=== PATIENT | male | born 1960 | race Caucasian/White ===

== ENCOUNTER 2017-09-29 09:27 | Outpatient (CLI) | payer SELFPAY ==
--- NOTE | 2017-09-29 19:51 | RAD ---
CHEST TWO VIEWS: Date: 09-29-17 History: Recent history of influenza. Patients with dyspnea. Comparison: None available. FINDINGS: The heart in size. There is no congestive change or significant pleural effusion. There is diffuse pr ominence of the interstitial markings, perhaps a little more so in the lower lobes than upper. Given no prior films to compare with, I do not know if this is new or old. It is more likely to be fibrosis than it is to be acute, though viral illnesses can produce interstitial infiltrates. There is certai nly no lobar consolidation to suggest a typical bacterial pneumonia. The trachea is midline. IMPRESSION: Mild interstitial prominence. See above. POS: HOME
== END 2017-09-29 09:28 | disposition home or self-care (01) ==
LOC: BURRAD 09:27
PROVIDERS: ATTEND Physician Assistant
DX: J11.1 Influenza due to unidentified influenza virus with other respiratory manifestations (principal)
CPT/HCPCS: 71046

== ENCOUNTER 2020-06-19 09:45 | Emergency (ER) | payer OTHER ==
[2020-06-19] MEDS ORDERED: Nitroglycerin 0.4 MG TAB 1 EACH ONE (10:00)
[2020-06-19] MEDS ORDERED: Aspirin Chewable 81 MG TAB ONE ×2 (10:00)
[2020-06-19 10:06] LABS: Hemoglobin 15.5 g/dL (14.0-18.0); Mean Corpuscular HGB CONC 34.2 g/dL (32.0-36.0); Mean Corpuscular Hemoglobin 34.6 pg (27.0-31.0); Mean Platelet Volume 7.7 fL (7.4-10.4); Platelet Count 233 thou/uL (130-400); RBC Distribution Width 11.2 % (11.5-14.5); Red Blood Cell (RBC) Count 4.48 mill/uL (4.70-6.10); White Blood Cell (WBC) Count 9.6 thou/uL (4.8-10.8)
[2020-06-19 10:18] LABS: ALT (SGPT) 13 U/L (8-55); AST (SGOT) 12 U/L (5-34); Albumin 4.2 g/dL (3.4-4.8); Alkaline Phosphatase 85 U/L (40-110); Anion Gap 15 mmol/L (10-20); BUN (Urea Nitrogen) 17 mg/dL (8.4-25.7); Bilirubin, Total 0.5 mg/dL (0.2-1.2); Calc. Creatinine Clearance 0 mL/min (70-130); Calcium 8.8 mg/dL (7.8-10.44); Carbon Dioxide 24 mmol/L (23-31); Chloride 106 mmol/L (98-107); Estimated GFR-MDRD Greater than 90; Globulin 2.8 g/dL (2.4-3.5); Glucose 94 mg/dL (80-115); Lipase 31 U/L (8-78); Potassium 4.1 mmol/L (3.5-5.1); Sodium 141 mmol/L (136-145)
[2020-06-19 10:23] LABS: #Basophils 0.1 thou/uL (0.0-0.2); #Eosinphils 0.1 thou/uL (0.0-0.7); #Lymphocytes 3.1 thou/uL (1.20-3.40); #Monocytes 0.4 thou/uL (0.11-0.59); #Neutrophils 5.9 thou/uL (1.40-6.50); %Basophils 1.1 % (0.0-1.0); %Lymphocytes 31.7 % (21.0-51.0); %Monocytes 4.6 % (0.0-10.0); %Neutrophils 61.7 % (42.0-75.0); MDiff Complete? YES; Macrocytosis SLIGHT = 6-15 cells (100X) (0-5/hpf); Platelet Morphology Comment Appears Adequate
--- NOTE | 2020-06-19 15:01 | RAD ---
PORTABLE CHEST: 05/23/20 An AP portable film at 0958 is compared with a 09/29/17 study. The heart is unchanged in size. There is no lobar infiltrate or effusion. No congestive change was ap preciated. The mild prominence of the vessels is felt to be due to technical factors. IMPRESSION: No definite acute finding. POS: HOME
== END 2020-06-19 10:42 | disposition left against medical advice (07) ==
LOC: BURERS 09:45 → MERGE 09:45 → BURERS 10:42
DX: R07.82 Intercostal pain (principal); D75.89 Other specified diseases of blood and blood-forming organs; F17.210 Nicotine dependence, cigarettes, uncomplicated
CPT/HCPCS: 71045; 80053; 83690; 83880; 84484; 85025; 93005; 94760

== ENCOUNTER 2021-04-24 02:45 | Emergency (ER) | payer OTHER ==
[2021-04-24 03:14] LABS: Bilirubin Negative (Negative); Blood, Urine Trace (Negative); Clarity Slightly Cloudy (Clear); Glucose, Urine (Dipstick) Negative (Negative); Ketone, Urine Negative (Negative); Leukocyte Negative (Negative); Nitrite Negative (Negative); Protein, Urine (Dipstick) Negative (Neg-Trace); Specific Gravity, Urine 1.025 (1.005-1.030); Urobilinogen 0.2 mg/dL (Less than 2); pH, Urine 6.5 (5.0-9.0)
[2021-04-24 03:18] LABS: Bacteria/HPF Rare-Few HPF (None Seen); RBC/HPF 0-3 HPF (0-3); Squamous Epithelial 0-3 HPF (0-3); WBC/HPF 0-3 HPF (0-3)
[2021-04-24] MEDS ORDERED: Ketorolac Tromethamine 60 MG/2 ML VIAL ONE (03:21)
== END 2021-04-24 03:36 | disposition home or self-care (01) ==
LOC: BURERS 02:45
DX: S39.012A Strain of muscle, fascia and tendon of lower back, initial encounter (principal); X58.XXXA Exposure to other specified factors, initial encounter
CPT/HCPCS: 81003; 81015; 96372; 99283; J1885

== ENCOUNTER 2022-05-25 04:26 | Emergency (ER) | payer BC, OTHER ==
[2022-05-25] MEDS ORDERED: Morphine 4 MG/ML VIAL ONE (04:52)
[2022-05-25] MEDS ORDERED: Nitroglycerin 0.4 MG TAB 1 EACH ONE (04:52)
[2022-05-25] MEDS ORDERED: Ondansetron PF 4 MG/2 ML Vial ONE (04:56)
[2022-05-25] MEDS ORDERED: Nitroglycerin 50 MG/250 ML BOT 250 ML ONE (04:58)
[2022-05-25] MEDS ORDERED: Aspirin Chewable 81 MG TAB ONE (04:58)
[2022-05-25 05:15] LABS: Prothrombin Time 13.1 sec (12.0-14.7)
[2022-05-25 05:16] LABS: #Basophils 0.1 thou/uL (0.0-0.2); #Eosinphils 0.2 thou/uL (0.0-0.7); #Monocytes 0.5 thou/uL (0.11-0.59); #Neutrophils 6.8 thou/uL (1.40-6.50); %Basophils 0.9 % (0.0-1.0); %Eosinophils 1.4 % (0.0-10.0); %Lymphocytes 34.6 % (21.0-51.0); %Monocytes 4.4 % (0.0-10.0); %Neutrophils 58.7 % (42.0-75.0); Hemoglobin 17.4 g/dL (14.0-18.0); Mean Corpuscular HGB CONC 35.1 g/dL (32.0-36.0); Mean Corpuscular Hemoglobin 34.9 pg (27.0-31.0); Mean Corpuscular Volume 99.5 fL (78.0-98.0); Mean Platelet Volume 7.9 fL (7.4-10.4); PTT 31.2 sec (22.9-36.1); Platelet Count 264 thou/uL (130-400); RBC Distribution Width 11.5 % (11.5-14.5); Red Blood Cell (RBC) Count 4.99 mill/uL (4.70-6.10); White Blood Cell (WBC) Count 11.5 thou/uL (4.8-10.8)
[2022-05-25 05:18] LABS: D-Dimer Test Less than 0.27 *mcg/mL (0.27-0.43)
[2022-05-25 05:19] LABS: ALT (SGPT) 14 U/L (8-55); AST (SGOT) 15 U/L (5-34); Albumin 4.4 g/dL (3.4-4.8); Alkaline Phosphatase 89 U/L (40-110); Anion Gap 17 mmol/L (10-20); BUN (Urea Nitrogen) 11 mg/dL (8.4-25.7); Bilirubin, Total 0.6 mg/dL (0.2-1.2); Calc. Creatinine Clearance 0 mL/min (70-130); Calcium 9.5 mg/dL (7.8-10.44); Carbon Dioxide 23 mmol/L (23-31); Chloride 105 mmol/L (98-107); Estimated GFR 99; Globulin 2.9 g/dL (2.4-3.5); Glucose 112 mg/dL (80-115); Magnesium 1.9 mg/dL (1.6-2.6); Protein, Total 7.3 g/dL (5.8-8.1); Sodium 141 mmol/L (136-145)
[2022-05-25 05:37] LABS: Platelet Morphology Comment Appears Adequate; RBC Morphology Normal
[2022-05-25] MEDS ORDERED: Morphine 2 MG/ML VIAL ONE (05:41)
[2022-05-25] MEDS ORDERED: Heparin 10,000 UNITS/1 ML VIAL ONE (05:52)
[2022-05-25] MEDS ORDERED: Heparin 25,000 units/D5W 500 ML ONE (05:54)
[2022-05-26] MEDS ORDERED: Ibuprofen 800 MG TAB ONE (09:55)
== END 2022-05-25 06:10 | disposition short-term general hospital (02) ==
LOC: BURERS 04:26
DX: I24.9 Acute ischemic heart disease, unspecified (principal); F17.210 Nicotine dependence, cigarettes, uncomplicated
CPT/HCPCS: 71045; 80053; 82553; 83735; 84484; 85025; 85379; 85610; 85730; 93005; 96365; 96375; 96376; J1644; J2270; J2405